=== PATIENT | male | born 1985 ===

== ENCOUNTER 2018-06-01 23:35 | Emergency (ER) | payer SELFPAY ==
[2018-06-01 23:55] VITALS: BP 138/90; PULSE 68; RESP 16; TEMP 97.6; O2SAT 97
--- NOTE | 2018-06-02 00:18 | C.PDOC ---
History Of Present Illness 33 y/o male pt presents to the ER c/o epigastric and LLQ abdominal pain for x5 days. Pt reports in that time frame, he went to see his PMD who gave him a medication that he is unsure of. Sx did not improve which prompted him to come visit the ER. Pt denies nausea, vomiting, constipation, urinary sx, back pain and other associated sx or complaints at this time. Chief Complaint (Nursing): Abdominal Pain History Per: Patient History/Exam Limitations: no limitations Onset/Duration Of Symptoms: Days (x5) Current Symptoms Are (Timing): Still Present Location Of Pain/Discomfort: Epigastric, LLQ Past Medical History Reviewed: Historical Data, Nursing Documentation, Vital Signs Vital Signs: Last Vital Signs Temp 97.6 F 06/01/18 23:52 Pulse 68 06/01/18 23:52 Resp 16 06/01/18 23:52 BP 138/90 06/01/18 23:52 Pulse Ox 97 06/01/18 23:52 Family History: States: Unknown Family Hx - Social History Hx Alcohol Use: Yes Hx Substance Use: No Review Of Systems Constitutional: Negative for: Fever, Chills Cardiovascular: Negative for: Chest Pain Respiratory: Negative for: Cough, Shortness of Breath Gastrointestinal: Positive for: Abdominal Pain (epigastric and LLQ). Negative for: Nausea, Vomiting, Diarrhea, Constipation, Melena, Hematochezia Genitourinary: Negative for: Dysuria, Frequency, Incontinence, Hematuria Musculoskeletal: Negative for: Neck Pain, Back Pain Skin: Negative for: Rash Neurological: Negative for: Weakness, Numbness Psych: Negative for: Anxiety, Depression Physical Exam - Physical Exam Appears: Non-toxic, No Acute Distress Skin: Normal Color, Warm, Dry Head: Atraumatic, Normacephalic Eye(s): bilateral: Normal Inspection, PERRL, EOMI Nose: Normal Oral Mucosa: Moist Neck: Trachea Midline, Supple, Other (no meningeal signs and negative kernig's and brudzinski's ) Chest: Symmetrical Cardiovascular: Rhythm Regular, No Friction Rub Respiratory: Normal Breath Sounds, No Rales, No Rhonchi, No Wheezing Gastrointestinal/Abdominal: Bowel Sounds (normal; active ), Soft, Tenderness (mild; epigastric and LLQ ), No Distention, No Guarding, No Rebound Back: No CVA Tenderness Extremity: Bilateral: Atraumatic, Normal Color And Temperature, Normal ROM Neurological/Psych: Oriented x3, Normal Speech, Normal Cognition, Normal Motor, Normal Sensation ED Course And Treatment - Laboratory Results Result Diagrams: 06/02/18 01:05 06/02/18 01:05 O2 Sat by Pulse Oximetry: 97 (RA) Pulse Ox Interpretation: Normal Medical Decision Making Medical Decision Making: plans: -- chem labs -- blood work -- CT abd and pelvis -- pepcid -- IV fluids 0138 labs unremakrable pending imaging 0536 mild thinkcing of the gallbladder per CT us ordered 0623 pt re-examined, tolerating clears, comfortable and sleeping when woken, notes no pain. NO RUQ pain on exam, abdomen complete non-ttp US cancelled, likely incidental finding, to follow up outpt. Pt agreealbe to plan Disposition - Disposition Referrals: Dennis Amin MD [Staff Provider] - El Lemos MD [Staff Provider] - [facility] [Outside] [facility] [Outside] [facility] [Outside] Disposition Time: 06:24 Condition: GOOD Additional Instructions: RETURN IF PAIN RETURNS. SEE YOUR PRIMARY CARE DOCTOR AND A GI DOCTOR CROW. NICHOLAS HUANG, thank you for letting us take care of you today. Your provider was Bill Villa and you were treated for ABDOMINAL PAIN. The emergency medical care you received today was directed at your acute symptoms. If you were prescribed any medication, please fill it and take as directed. It may take several days for your symptoms to resolve. Return to the Emergency Department if your symptoms worsen, do not improve, or if you have any other problems. Please contact your doctor or call one of the physicians/clinics you have been referred to that are listed on the Patient Visit Information form that is included in your discharge packet. Bring any paperwork you were given at dis charge with you along with any medications you are taking to your follow up visit. Our treatment cannot replace ongoing medical care by a primary care provider outside of the emergency department. Thank you for allowing the [facility] team to be part of your care today. If you had an X-Ray or CT scan: A Radiologist will review the ED reading if any change in treatment is needed we will contact you. If you had a blood, urine, or wound culture: It will take several days for the results, if any change in treatment is needed we will contact you. If you had an STI test: It will take 48 hours for the results. Please call after 1 week if you have not heard back. Prescriptions: Famotidine [Pepcid] 20 mg PO DAILY PRN #5 tab PRN Reason: Dyspepsia Instructions: Acute Abdomen (Belly Pain), Adult (DC) Forms: [facility] ([place] Citizen) - Clinical Impression Clinical Impression: Abdominal pain
[2018-06-02] MEDS ORDERED: Sodium Chloride 0.9% 1,000 ML IV ONE (00:36)
[2018-06-02] MEDS ORDERED: Sodium Chloride 0.9% 1,000 ML ONE (01:12)
[2018-06-02 01:17] LABS: BASO # 0.1 K/uL (0.0-0.2); BASO % 1.2 % (0.0-2.0); EOS # 0.7 K/uL (0.0-0.7); LYMPH # 2.1 K/uL (1.0-4.3); LYMPH % 28.4 % (20.0-40.0); MEAN CELL VOLUME 87.7 fL (80.0-94.0); MEAN CORPUSCULAR HEMOGLOBIN 30.6 pg (27.0-31.0); MEAN CORPUSCULAR HGB CONC 34.9 g/dL (33.0-37.0); MEAN PLATELET VOLUME 12.1 fL (7.2-11.7); MONO # 0.6 K/uL (0.0-0.8); MONO % 7.7 % (0.0-10.0); NEUT # 3.9 K/uL (1.8-7.0); NEUT % 53.7 % (50.0-75.0); NRBC % 0.2 % (0.0-2.0); RBC 4.9 Mil/uL (4.40-5.90); WHITE BLOOD COUNT 7.3 K/uL (4.8-10.8)
[2018-06-02 01:22] LABS: BLOOD UREA NITROGEN 14 mg/dL (9-20); CALCIUM 9.4 mg/dl (8.6-10.4); GFR NON-AFRICAN AMERICAN > 60; LIPASE 60 U/L (23-300)
[2018-06-02 01:24] LABS: ALB/GLOB RATIO 1.6 (1.0-2.1); ALBUMIN 4.8 g/dL (3.5-5.0); ALT/SGPT 39 U/L (21-72); AST/SGOT 51 U/L (17-59)
[2018-06-02] MEDS ORDERED: Iodixanol 320 MG/ML 100 ML BOTTLE IV ONE (02:26)
--- NOTE | 2018-06-02 14:20 | CT ---
Date of service: 06/02/2018 PROCEDURE: CT Abdomen and Pelvis with contrast HISTORY: belly pain x5d LLQ, epig COMPARISON: None. TECHNIQUE: Contrast dose: 100 mL of Visipaque 320 intravenously. Radiation dose: Total exam DLP = 506.52 mGy-cm. This CT exam was performed using one or more of the following dose reduction techniques: Automated exposure control, adjustment of the mA and/or kV according to patient size, and/or use of iterative reconstruction technique. FINDINGS: LOWER THORAX: Dense of acute pathology. LIVER: Mild hepatomegaly with findings suggestive of mild hepatic steatosis GALLBLADDER AND BILE DUCTS: Mild gallbladder wall thickening without evidence of acute cholecystitis. PANCREAS: Unremarkable. No gross lesion or ductal dilatation. SPLEEN: Unremarkable. ADRENALS: Unremarkable. No mass. KIDNEYS AND URETERS: Unremarkable. No hydronephrosis. No solid mass. VASCULATURE: Unremarkable. No aortic aneurysm. No aortic atherosclerotic calcification or mural plaque present. BOWEL: Unremarkable. No obstruction. No gross mural thickening. APPENDIX: There is no evidence of appendicitis. PERITONEUM: Unremarkable. No free fluid. No free air. LYMPH NODES: Unremarkable. No enlarged lymph nodes. BLADDER: Distended urinary bladder. REPRODUCTIVE: The prostate is mildly enlarged. BONES: No acute fracture. OTHER FINDINGS: None. IMPRESSION: Mild gallbladder wall thickening without CT evidence of acute cholecystitis. No evidence of pancreatitis or appendicitis. Distended urinary bladder. Mildly enlarged prostate. Preliminary report was submitted by [facility] Radiology contains concordant findings.
== END 2018-06-02 07:00 | disposition home or self-care (01) ==
LOC: C.ER 23:35
DX: R10.13 Epigastric pain (principal)
CPT/HCPCS: 74177; 80053; 83690; 85025; 96374; 99283; J7030; Q9967